=== PATIENT | female | born 2005 | race Caucasian/White ===

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

== ENCOUNTER → 2025-05-20 | Outpatient (CLI) | payer OTHER | LOC: M PLARAD 10:06 | PROVIDERS: ATTEND Pediatrics | DX: M25.562 Pain in left knee (principal); G89.29 Other chronic pain; M06.00 Rheumatoid arthritis without rheumatoid factor, unspecified site; M25.462 Effusion, left knee ==